=== PATIENT | female | born 1960 | race Caucasian/White ===

== ENCOUNTER → 2020-12-10 17:04 | Outpatient (CLI) | payer OTHER, SELFPAY ==
--- NOTE | 2020-12-10 | DI.MG.S_ITS ---
BILATERAL DIGITAL SCREENING MAMMOGRAM 3D/2D WITH CAD: 12/10/2020 CLINICAL: Routine screening. Comparison is made to exams dated: 03/20/2019 mammogram, 03/08/2018 mammogram, and 03/02/2017 mammogram - outside location. There are scattered fibroglandular elements in both breasts. Current study was also evaluated with a Computer Aided Detection (CAD) system. There is a possible developing 0.6 cm irregular equal density focal asymmetry in the right breast at 5 o'clock anterior depth. There are new grouped fine heterogeneous calcifications in the left breast at 12 o'clock anterior depth. No other significant masses or calcifications are seen in either breast. IMPRESSION: INCOMPLETE: NEEDS ADDITIONAL IMAGING EVALUATION The possible developing 0.6 cm irregular equal density focal asymmetry in the right breast at 5 o'clock anterior depth is indeterminate. Additional views with possible ultrasound are recommended. The new grouped fine heterogeneous calcifications in the left breast at 12 o'clock anterior depth are indeterminate. Mediolateral, spot magnification, and additional views are recommended. This exam was interpreted at Station ID: [id number]. NOTE: For mammograms, a report in lay terms will be sent to the patient. Approximately 15% of breast malignancies will not be visualized mammographically. In the management of a palpable breast mass, a negative mammogram must not discourage biopsy of a clinically suspicious lesion. Electronically Signed By: Joshua saleem/lópez:12/11/2020 08:25:09 letter sent: Additional Imaging Needed ACR BI-RADS Category 0: Incomplete 3340F
== END ==
PROVIDERS: Referring Provider Family Medicine; Visit Provider Family Medicine
DX: Z12.31 Encounter for screening mammogram for malignant neoplasm of breast (principal)
CPT/HCPCS: 77063; 77067

== ENCOUNTER → 2021-01-01 12:28 | Outpatient (CLI) | payer OTHER, SELFPAY ==
--- NOTE | 2021-01-01 | DI.MG.S_ITS ---
BILATERAL DIGITAL DIAGNOSTIC MAMMOGRAM 3D/2D WITH ADDITIONAL VIEWS: 01/01/2021 CLINICAL: Additional evaluation requested from prior study. Comparison is made to exams dated: 12/10/2020 mammogram - [facility], 03/20/2019 mammogram, and 03/08/2018 mammogram - outside location. There are scattered fibroglandular elements in both breasts. There is a 5 mm round equal density focal asymmetry with a spiculated margin in the right breast at 4 o'clock anterior depth. This is seen in additional views. This has increased in size compared to priors. There are new grouped fine heterogeneous calcifications in the left breast at 12 o'clock anterior depth. No other significant masses or calcifications are seen in either breast. IMPRESSION: INCOMPLETE: NEEDS ADDITIONAL IMAGING EVALUATION The 5 mm round equal density focal asymmetry in the right breast at 4 o'clock anterior depth remains indeterminate. An ultrasound is recommended. This was performed immediately following this exam. The new grouped fine heterogeneous calcifications in the left breast at 12 o'clock anterior depth are indeterminate. An ultrasound is recommended to detect any underlying mass. In the absence of mass, stereotactic biopsy is recommended. Left breast ultrasound was unable to be performed today. The patient would like to proceed with stereotactic biopsy based on mammographic findings. This exam was interpreted at Station ID: [id number]. NOTE: For mammograms, a report in lay terms will be sent to the patient. Approximately 15% of breast malignancies will not be visualized mammographically. In the management of a palpable breast mass, a negative mammogram must not discourage biopsy of a clinically suspicious lesion. Electronically Signed By: Yessica johnson/:01/01/2021 15:16:15 ACR BI-RADS Category 0: Incomplete 3340F
--- NOTE | 2021-01-01 | DI.US.S_ITS ---
ULTRASOUND OF RIGHT BREAST AND AXILLA: 01/01/2021 CLINICAL: Patient returns today to evaluate a focal asymmetry in the right breast. Comparison is made to exams dated: 01/01/2021 mammogram, 12/10/2020 mammogram - [facility], 03/20/2019 mammogram, 03/08/2018 mammogram, and 03/02/2017 mammogram - outside location. Color flow and real-time ultrasound of the right breast axilla were performed. Hyatt scale images of the real-time examination were reviewed. There is a 0.5 cm x 0.5 cm x 0.3 cm irregular mass in the right breast at 4 o'clock anterior depth 5 cm from the nipple. This irregular mass is hypoechoic with posterior acoustic shadowing. This correlates with mammography findings. Color flow imaging demonstrates that there is vascularity present. No significant abnormalities were seen sonographically in the right axilla. IMPRESSION: SUSPICIOUS OF MALIGNANCY The 0.5 cm x 0.5 cm x 0.3 cm irregular mass in the right breast is suspicious of malignancy. An ultrasound guided biopsy is recommended. Findings and recommendations were discussed with the patient and her over the phone at time of exam. Additionally, stereotactic biopsy of the calcifications in the left breast at the 12:00 position anteriorly is recommended. This was also explained to the patient immediately following the study. This exam was interpreted at Station ID: [id number]. Electronically Signed By: Yessica johnson/:01/01/2021 15:13:58 letter sent: Biopsy Required Ultrasound BI-RADS: 4 Suspicious for malignancy
== END ==
PROVIDERS: Referring Provider Family Medicine; Visit Provider Family Medicine
DX: R92.8 Other abnormal and inconclusive findings on diagnostic imaging of breast (principal); R92.1 Mammographic calcification found on diagnostic imaging of breast; N63.14 Unspecified lump in the right breast, lower inner quadrant
CPT/HCPCS: 76642; 77066; G0279